=== PATIENT | male | born 1965 | race Caucasian/White ===

== ENCOUNTER 2020-11-07 06:49 | Day surgery (SDC) | payer BC ==
[2020-11-04 12:07] LABS: BASOPHILS 0.9 % (0-2); EOSINOPHILS 2.2 % (0-7); HEMATOCRIT 42.4 % (42.0-54.0); HEMOGLOBIN 14.4 g/dL (13.5-17.5); MCH 29.1 pg (26.0-34.0); MCV 85.7 fL (80.0-100.0); MEAN PLATELET VOLUME 8.1 fL (7.4-10.4); MONOCYTES 9.8 % (2-11); NEUTROPHILS 58.1 % (40-80); PLATELET COUNT 164 10x3/uL (130-400); RBC 4.95 10x6/uL (4.20-6.10); RDW 13.6 % (11.5-14.5); WBC 5.6 10x3/uL (4.8-10.8)
[2020-11-04 12:18] LABS: APTT 27.4 SECONDS (22.8-39.4); INR 1.07 (0.85-1.17); PROTIME 12.8 SECONDS (11.6-15.0)
[2020-11-04 12:21] LABS: ALBUMIN 3.6 g/dL (3.4-5.0); ANION GAP 12.9 mmol/L (8-16); BILIRUBIN - TOTAL 0.37 mg/dL (0.2-1.3); CALCIUM 8.4 mg/dL (8.5-10.1); CARBON DIOXIDE 25.9 mmol/L (21.0-32.0); CREATININE - SERUM 1.2 mg/dL (0.6-1.3); POTASSIUM - SERUM 3.8 mmol/L (3.5-5.1)
[~2020-11-07] VITALS: Ht 177.8 cm; Wt 86.4 kg
[2020-11-07] VITALS (7 sets, daily range): BP systolic 94–129; BP diastolic 57–82; Ht 177.8 cm; Wt 86.4 kg
[~2020-11-07 06:49] MED LIST: ADDERALL 30 MG30 MG PO; CIALIS10 MG PO; HYDROCODONE-AC1 EAC2 PO; LEVOTHYROXINE200 MCG PO; OMEPRAZOLE40 MG PO; ZOLOFT100 MG PO
--- NOTE | 2020-11-07 11:38 | NUR ---
PT ABLE TO MOVE ALL EXTREMTIEIS AND FOLLOW COMMANDS
--- NOTE | 2020-11-07 12:00 | NUR ---
RECEIVED TO ROOM 2233 VIA BED FROM PACU. A/O X3. DRESSING TO NECK IS DRY AND INTACT. AT BEDSIDE. IV TO RIGHT HAND IS PATENT WITHOUT REDNESS AT INSERTION SITE. DENIES NEEDS.
--- NOTE | 2020-11-07 19:48 | NUR ---
ATE MOST OF CL SUPPER. UP TO BR WITH ONE PERSON MIN ASSIST. VOIDED CLEAR YELLOW URINE WITHOUT DIFFICULTY. DENIES NEEDS. NO CHANGES NOTED.
--- NOTE | 2020-11-07 20:23 | NUR ---
PATIENT RESTING IN BED WITH EYES CLOSED AND NO S/S OF DISTRESS. BED IN LOWEST POSITION AND CALL LIGHT IN REACH.
--- NOTE | 2020-11-07 20:47 | NUR ---
ADMINISTERED MEDS PER ORDERS. PATIENT BRIANNA WELL. ENCOURAGED TO CALL WITH NEEDS.
[2020-11-08] VITALS: BP 105/73
[2020-11-08 04:00] VITALS: BP 94/47
--- NOTE | 2020-11-08 07:30 | NUR ---
AWAKE AND ALERT. ORIENTED X3. NO C/O AT THIS TIME. LUNGS ARE CLEAR BILATERALLY, NO COUGH NOTED. SKIN IS INTACT WITHOUT REDNESS EXCEPT INCISION TO NECK WHCIH IS CLEAN AND DRY WITH DRESSING INTACT. IV TO RIGHT FOREARM IS PATENT WITHOUT REDNESS AT INSERTION SITE. DENIES NEEDS.
[2020-11-08] MEDS ORDERED: HYDROCODON-ACE1 EA10 PO (08:42)
[2020-11-08] MEDS ORDERED: MEDROL DOSE PACK4 MG PO (08:43)
[2020-11-08 09:07] VITALS: BP 130/74
--- NOTE | 2020-11-08 09:45 | NUR ---
REQUESTED AND GIVEN 2 HYDROCODONE PO FOR C/O NECK PAIN. WILL MONITOR.
--- NOTE | 2020-11-08 11:35 | NUR ---
DISCHARGED TO HOME WITH AMBULATORY. DISCHARGE INSTRUCTIONS GIVEN BOTH VERBBALLY AND WRITTEN. ALL QUESTIONS ANSWERED. PATIENT AND VERBALIZED UNDERSTANDING OF SAME. IV TO RIGHT FOREARM D/C WITH CATHETER INTACT. NEEDED PRESCRIPTIONS GIVEN TO PATIENT. ALL BELONGINGS IWTH PATIENT.
--- NOTE | 2020-11-14 09:16 | OP ---
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 PROCEDURE: Anterior cervical discectomy and fusion with removal of osteophytes at C4-C5. Zavation anterior cervical plate and screws, separate PEEK interbody cage with bone stem cells. DESCRIPTION OF PROCEDURE: After induction of general endotracheal anesthesia, the patient was positioned supine on the operating table. Neck was prepped and draped in the usual sterile fashion. Fluoroscopic x-ray and freer localized the C4-C5 interspace. After infiltration with 1:100,000 epinephrine with 1% lidocaine, a transverse skin incision was carried out from the midline to the sternocleidomastoid muscle. The platysma was divided with sharp dissection using blunt and sharp dissection with Metzenbaum scissors and proceeded in an avascular plane medial to the carotid sheath. The C4-C5 interspace was identified with fluoroscopic x-ray and a spinal needle. Longus colli muscles were elevated from the bodies of C4 and C5. Self-retaining retractors were placed deep to the longus colli muscles. [place] distraction pins were placed by the C4 and C5. The disc space was incised under distraction. Disc material was removed with pituitary rongeurs and curettes posteriorly. Midas Miles drill and microscope was used to remove osteophytes. The posterior longitudinal ligament was removed with Cloward rongeurs. This decompressed the dura well. PEEK interbody cages was filled with Kyra bone allograft and placed in the disc space under distraction. A separate anterior cervical plate and screws from [facility] [employer] was used to span the C4-C5 interspace. Locking cams were tightened down over the screw heads. Meticulous hemostasis was maintained throughout the wound. Good position of the hardware was confirmed with fluoroscopic x-ray. The platysma and subdermal layer closed with interrupted 4-0 Vicryl suture. The skin was reapproximated with Steri-Strips and benzoin. A sterile dressing was applied to the wound. The patient was awakened in good condition and taken to recovery. All counts were reported as correct. Estimated blood loss was minimal. TRANSINT:[id number] Voice Confirmation ID: [id number] DOCUMENT ID: [id number] VIRGINIA LOCKWOOD MD at 0916 CC: [id number] DICTATION DATE: 11/14/20742 [place] LAPPER: 11/14/20804 [facility] 11/08/20 [place] [phone]
== END 2020-11-08 12:07 | disposition home or self-care (01) ==
LOC: D.OPS 06:49 → D.MS 12:02 → D.OPS 11-08 12:07
PROVIDERS: Anesthesiology; ATTEND Neurological Surgery
DX: M50.221 Other cervical disc displacement at C4-C5 level (principal); M54.12 Radiculopathy, cervical region